=== PATIENT | female | born 1990 | race Caucasian/White ===

== ENCOUNTER 2021-11-23 11:12 | Outpatient (REF) | payer OTHER, SELFPAY ==
[2021-11-29 08:57] LABS: HPV mRNA E6/E7 rflx Not Detected (Not Detected)
== END 2021-11-23 11:13 | disposition home or self-care (01) ==
LOC: HO.LAB 11:12
PROVIDERS: Visit Provider Internal Medicine
DX: Z12.4 Encounter for screening for malignant neoplasm of cervix (principal); Z11.51 Encounter for screening for human papillomavirus (HPV)
CPT/HCPCS: 87624; 88142

== ENCOUNTER 2023-09-21 08:57 | Outpatient (AMB) | payer OTHER, SELFPAY ==
--- NOTE | 2023-09-21 09:08 | MHC.PC.OV ---
Vital Signs 09/21/23 09:23 Height 5 ft 7 in Weight 145 lb BMI 22.7 BP 118/70 Blood Pressure Location Lt brachial Position Sitting Pulse 90 Pulse Source Pulse Oximeter Pulse Oximetry (%) 97 Oxygen Delivery Method Room Air Intake Visit Reasons: PE Intake Note: Pt is here today for PE. Allergies amoxicillin [Augmentin] Allergy (Unknown, Verified 09/21/23 09:31) Rash ciprofloxacin [Cipro] Allergy (Unknown, Verified 09/21/23 09:31) toes and fingers went numb neuropathy clavulanic acid [Augmentin] Allergy (Unknown, Verified 09/21/23 09:31) Rash penicillin V Allergy (Unknown, Verified 09/21/23 09:31) Rash Medication List - Last Reconciled 09/21/23 by Delfina Juarez MD dextroamphetamine-amphetamine 30 mg 1 tab PO DAILY PRN loratadine (Claritin) 10 mg PO DAILY norgestrel-ethinyl estradiol 0.3-30 mg-mcg (Low-Ogestrel (28)) 1 tab PO DAILY Tobacco use date assessed: 09/21/23 Dental Screening Dental Screen Date: 09/21/23 Did you have a dental visit in the last 12 months?: Yes Did you have a dental problem in the last 6 months where you did not have access to dental care?: No Was dental information given to patient?: Patient has dentist HPI PE HPI Details Pt presents for PE. [facility] Medical History (Updated 11/23/21 @ 10:53 by Delfina Juarez MD) ADHD Surgical History Status post colposcopy Hx of breast implants, bilateral Family History Father No problems noted. Mother No problems noted. Social History Household Members Other:: single, no children Housing: House Patient Tobacco Use Status: Never used Tobacco e-Cigarette/Vaping Use: Never Used service: No Current occupational status: employed Cognitive needs: No Hearing needs: No Vision needs: Yes Questionnaire PHQ-9 Over the last 2 weeks, how often have you been bothered by any of the following problems? 1. Little interest or pleasure in doing things: not at all 2. Feeling down, depressed, or hopeless: not at all 3. Trouble falling or staying asleep, or sleeping too much: not at all 4. Feeling tired or having little energy: not at all 5. Poor appetite or overeating: not at all 6. Feeling bad about yourself - or that you are a failure or have let yourself or your family down: not at all 7. Trouble concentrating on things, such as reading the newspaper or watching television: not at all 8. Moving or speaking so slowly that other people could have noticed. Or the opposite - being so fidgety or restless that you have been moving around a lot more than usual: not at all 9. Thoughts that you would be better off or of hurting yourself in some way: not at all Total score: 0 Depression Screening Interpretation: Negative Depression Screening Done: Yes Source: Developed by Drs. Uriel Royal, Zayra Sotomayor, Gordon Mcpherson and colleagues, with an educational layla from [employer] Thrive Questionnaire Date Thrive assessed: 09/21/23 I am a: Patient What is your living situation today?: I have a steady place to live Within the past 12 months, did the food you bought not last and you didn't have the money to get more?: Never true Within the past 12 months, did you worry whether your food would run out before you got money to buy more?: Never true Do you have trouble paying for medicines?: No Do you have trouble getting transportation to medical appointments?: No Do you have trouble paying your heating and electricity bill?: No Do you have trouble taking care of your child, family member or friend?: No Do you have trouble with day-to-day activities such as bathing, preparing meals, shopping, managing finances, etc.?: No Are you currently unemployed and looking for a job?: No Are you interested in more education?: No Please select the resources that you would like help with: None THRIVE Score: 0 AUDIT C Alcohol Use Questionnaire (AUDIT-C) 1. How often do you have a drink containing alcohol?: Monthly or less 2. How many drinks containing alcohol do you have on a typical day when you are drinking?: 1 or 2 3. How often do you have six or more drinks on one occasion?: Never Total Score: 1 JUAREZ-7 AMB Questionnaire JUAREZ-7 Date JUAREZ - 7 assessed: 09/21/23 Feeling nervous, anxious, or on edge: 0 = Not at all Not being able to stop or control worryin = Not at all Worrying too much about different things: 0 = Not at all Trouble relaxin = Not at all Being so restless that it is hard to sit still: 0 = Not at all Becoming easily annoyed or irritable: 0 = Not at all Feeling afraid as if something awful might happen: 0 = Not at all Total JUAREZ-7 score (0-4 normal; 5-9 mild; 10-14 moderate; 15-21 severe): 0 Source: Developed by Drs. Uriel Royal, Zayra Sotomayor, Gordon Mcpherson and colleagues, with an educational layla from [employer]. Review of Systems Const All systems reviewed & are unremarkable except as noted in HPI and below ENT Reports no additional complaints Card Reports no additional complaints Resp Reports no additional complaints GI Reports no additional complaints Reports no additional complaints Physical exam (Primary Care) Vital Signs: Last Vital Signs Pulse 90 09/21/23 09:23 BP 118/70 09/21/23 09:23 Pulse Ox 97 09/21/23 09:23 Oxygen Delivery Method Room Air 09/21/23 09:23 BMI result Body Mass Index 22.7 Tobacco/Smoking Status: Tobacco use Status Tobacco use date assessed 09/21/23 09/21/23 09:33 Patient Tobacco Use Status Never used Tobacco 09/21/23 09:33 e-Cigarette/Vaping Use Never Used 09/21/23 09:09 PHQ-9: PHQ-9 Score PHQ-9: Total score 0 09/21/23 09:50 Depression Screening Interpretation: Negative Thrive Assessment: Date of Thrive Assessment Date Thrive assessed 09/21/23 09/21/23 09:36 Const General: no acute distress HENMT Head: Yes normal to inspection Ears: hearing grossly normal bilaterally Face and sinus: Yes normal facial exam Mouth: Normal oral and palatal mucosa present Throat: Yes posterior oropharynx normal Eyes General: appearance normal, both eyes and all related structures Neck Neck: Yes no lymphadenopathy and Yes supple Resp Effort & Inspection: normal respiratory effort Auscultation: clear to auscultation bilaterally Cardio Rhythm: regular rhythm Heart sounds: S1 normal heart sound present and S2 normal heart sound present GI Inspection: Yes normal to inspection Palpation (GI): Soft to palpation Percussion: Yes normal to percussion Auscultation: normal bowel sounds External Female Exam: normal external appearance Speculum Exam - Vagina: normal appearance of the vagina Speculum Exam - Cervix: normal appearance of the cervix Bimanual exam- vagina & uterus: normal bimanual exam Extrem General: Yes no clubbing, cyanosis or edema Assessment and Plan Assessment & Plan (1) Annual physical exam: Code(s): Z00.00 - Encounter for general adult medical examination without abnormal findings Plan: Well-balanced diet regular physical activity discussed with the patient Pap smear was done today Orders: Orders Pap Smear Today Z00.00 - Encounter for general adult medical examination without abnormal findings Bacterial Vaginosis Panel Today Z00.00 - Encounter for general adult medical examination without abnormal findings Coding Level of Care Code Est Pt Prev Care 18-39y(65722) Diagnoses Annual physical exam Z00.00
[2023-09-21 09:23] VITALS: BP 118/70; PULSE 90; O2SAT 97; BMI 22.7
== END 2023-09-21 10:37 | disposition home or self-care (01) ==
PROVIDERS: PCP Internal Medicine; Visit Provider Internal Medicine
DX: Z00.00 Encounter for general adult medical examination without abnormal findings (principal)
CPT/HCPCS: 99395

== ENCOUNTER 2023-09-21 12:55 | Outpatient (REF) | payer OTHER, SELFPAY ==
[2023-09-29 02:24] LABS: HPV mRNA E6/E7 Not Detected (Not Detected)
== END 2023-09-21 12:56 | disposition home or self-care (01) ==
LOC: HO.LNP 12:55
PROVIDERS: Visit Provider Internal Medicine
DX: Z00.00 Encounter for general adult medical examination without abnormal findings (principal)
CPT/HCPCS: 87624; 88142

== ENCOUNTER 2023-09-21 12:55 | Outpatient (REF) | payer OTHER, SELFPAY ==
[2023-09-22 10:59] LABS: BV Int Neg Control Negative (Negative); BV Int Pos Control Positive (Positive)
== END 2023-09-21 12:56 | disposition home or self-care (01) ==
LOC: HO.LAB 12:55
PROVIDERS: Visit Provider Internal Medicine
DX: Z00.00 Encounter for general adult medical examination without abnormal findings (principal)
CPT/HCPCS: 87480; 87510; 87660

== ENCOUNTER 2024-10-29 10:09 | Outpatient (AMB) | payer OTHER, SELFPAY ==
[2024-10-29 10:26] VITALS: BP 124/84; PULSE 99; RESP 18; TEMP 36.8; O2SAT 98; BMI 21.9
--- NOTE | 2024-10-29 10:26 | MHC.PC.OV ---
Vital Signs 10/29/24 10:26 Height 5 ft 7 in Weight 140 lb BMI 21.9 BP 124/84 Blood Pressure Location Lt brachial Position Sitting Respiration 18 Pulse 99 Pulse Source Pulse Oximeter Temp 98.2 F Temp Source Oral Pulse Oximetry (%) 98 Oxygen Delivery Method Room Air Intake Visit Reasons: Annual PE Intake Note: Pt is here today for PE. Allergies amoxicillin [Augmentin] Allergy (Unknown, Verified 10/29/24 10:30) Rash ciprofloxacin [Cipro] Allergy (Unknown, Verified 10/29/24 10:30) toes and fingers went numb neuropathy clavulanic acid [Augmentin] Allergy (Unknown, Verified 10/29/24 10:30) Rash penicillin V Allergy (Unknown, Verified 10/29/24 10:30) Rash Medication List - Last Reconciled 10/29/24 by Delfina Juarez MD dextroamphetamine-amphetamine 30 mg 1 tab PO DAILY PRN loratadine (Claritin) 10 mg PO DAILY norgestrel-ethinyl estradiol 0.3-30 mg-mcg (Low-Ogestrel (28)) 1 tab PO DAILY Tobacco use date assessed: 10/29/24 Dental Screening Dental Screen Date: 10/29/24 Did you have a dental visit in the last 12 months?: Yes Did you have a dental problem in the last 6 months where you did not have access to dental care?: No Was dental information given to patient?: Patient has dentist HPI Annual PE HPI Details Patient presents for physical. She complains of increased hair loss for the last 6 months. She denies any changes in her lifestyle but has been under stress trying to buy a house [facility] Medical History (Updated 10/29/24 @ 11:15 by Delfina Juarez MD) Normal pelvic exam Annual physical exam ADHD Surgical History Status post colposcopy Hx of breast implants, bilateral Family History Father No problems noted. Mother No problems noted. 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 1. Little interest or pleasure in doing things: not at all 2. Feeling down, depressed, or hopeless: not at all 3. Trouble falling or staying asleep, or sleeping too much: not at all 4. Feeling tired or having little energy: not at all 5. Poor appetite or overeating: not at all 6. Feeling bad about yourself - or that you are a failure or have let yourself or your family down: not at all 7. Trouble concentrating on things, such as reading the newspaper or watching television: not at all 8. Moving or speaking so slowly that other people could have noticed. Or the opposite - being so fidgety or restless that you have been moving around a lot more than usual: not at all 9. Thoughts that you would be better off or of hurting yourself in some way: not at all Total score: 0 Depression Screening Interpretation: Negative Depression Screening Done: Yes 18468 - PHQ-9 Billing: Yes Source: Developed by Drs. Uriel Royal, Zayra Sotomayor, Gordon Mcpherson and colleagues, with an educational layla from [employer]. Thrive Questionnaire Date Thrive assessed: 10/29/24 I am a: Patient What is your living situation today?: I have a steady place to live Within the past 12 months, did the food you bought not last and you didn't have the money to get more?: Never true Within the past 12 months, did you worry whether your food would run out before you got money to buy more?: Never true Do you have trouble paying for medicines?: No Do you have trouble getting transportation to medical appointments?: No Do you have trouble paying your heating and electricity bill?: No Do you have trouble taking care of your child, family member or friend?: No Do you have trouble with day-to-day activities such as bathing, preparing meals, shopping, managing finances, etc.?: No Are you currently unemployed and looking for a job?: No Are you interested in more education?: No Please select the resources that you would like help with: None Currently or been in a relationship where the following occur: No concerns reported THRIVE Score: 0 AUDIT C Alcohol Use Questionnaire (AUDIT-C) 1. How often do you have a drink containing alcohol?: Monthly or less 2. How many drinks containing alcohol do you have on a typical day when you are drinking?: 1 or 2 3. How often do you have six or more drinks on one occasion?: Never Total Score: 1 JUAREZ-7 AMB Questionnaire JUAREZ-7 Date JUAREZ - 7 assessed: 10/29/24 Feeling nervous, anxious, or on edge: 0 = Not at all Not being able to stop or control worryin = Not at all Worrying too much about different things: 0 = Not at all Trouble relaxin = Several days Being so restless that it is hard to sit still: 0 = Not at all Becoming easily annoyed or irritable: 0 = Not at all Feeling afraid as if something awful might happen: 0 = Not at all Total JUAREZ-7 score (0-4 normal; 5-9 mild; 10-14 moderate; 15-21 severe): 1 Source: Developed by Drs. Uriel Royal, Zayra Sotomayor, Gordon Mcpherson and colleagues, with an educational layla from [employer]. JUAREZ-7 Assessment Billing JUAREZ-7 Assessment Tool: JUAREZ-7 Assessment 95114 Review of Systems Const All systems reviewed & are unremarkable except as noted in HPI and below Eyes Reports no additional complaints ENT Reports no additional complaints Card Reports no additional complaints Resp Reports no additional complaints GI Reports no additional complaints Reports no additional complaints Musc Reports no additional complaints Physical exam (Primary Care) Vital Signs: Last Vital Signs Temp 98.2 F 10/29/24 10:26 Pulse 99 10/29/24 10:26 Resp 18 10/29/24 10:26 BP 124/84 10/29/24 10:26 Pulse Ox 98 10/29/24 10:26 Oxygen Delivery Method Room Air 10/29/24 10:26 BMI result Body Mass Index 21.9 Tobacco/Smoking Status: Tobacco use Status Tobacco use date assessed 10/29/24 10/29/24 10:30 Patient Tobacco Use Status Never used Tobacco 10/29/24 10:30 e-Cigarette/Vaping Use Never Used 10/29/24 10:26 PHQ-9: PHQ-9 Score PHQ-9: Total score 0 10/29/24 10:30 Depression Screening Interpretation: Negative Thrive Assessment: Date of Thrive Assessment Date Thrive assessed 10/29/24 10/29/24 10:26 Currently or been in a relationship where the following occur: No concerns reported Const General: no acute distress HENMT Head: Yes normal to inspection Ears: hearing grossly normal bilaterally Face and sinus: Yes normal facial exam Mouth: Normal oral and palatal mucosa present Throat: Yes posterior oropharynx normal Eyes General: appearance normal, both eyes and all related structures Neck Neck: Yes no lymphadenopathy and Yes supple Resp Effort & Inspection: normal respiratory effort Auscultation: clear to auscultation bilaterally Cardio Rhythm: regular rhythm Heart sounds: S1 normal heart sound present and S2 normal heart sound present GI Inspection: Yes normal to inspection Palpation (GI): Soft to palpation Percussion: Yes normal to percussion Auscultation: normal bowel sounds Coding Level of Care Code Est Pt Prev Care 18-39y(37378) Diagnoses Annual physical exam Z00. Additional Codes JUAREZ-7 Assessment Billing - JUAREZ-7 Assessment Tool: JUAREZ-7 Assessment 59058 ([id number]) PHQ-9 - 61697 - PHQ-9 Billing: Yes ([id number]) Assessment & Plan Assessment & Plan (1) Annual physical exam: Code(s): Z00. - Encounter for general adult medical examination without abnormal findings Category: Medical Plan: Well-balanced diet regular physical activity discussed with the patient she will return for fasting blood work. Patient due for repeat Pap next year Orders: Orders UA w Microscopic Today Z00.00 - Encounter for general adult medical examination without abnormal findings Comprehensive [place]. Panel Fast Today Z00.00 - Encounter for general adult medical examination without abnormal findings Complete Blood Count Auto Diff Today Z00.00 - Encounter for general adult medical examination without abnormal findings Lipid Panel Today Z00.00 - Encounter for general adult medical examination without abnormal findings TSH reflex Free T4 Today Z00.00 - Encounter for general adult medical examination without abnormal findings Vitamin D 25-OH Total Today Z00.00 - Encounter for general adult medical examination without abnormal findings Medications: Refilled norgestrel-ethinyl estradiol 0.3-30 mg-mcg (Low-Ogestrel (28)) 1 tab PO DAILY 84 tabs 11RF
--- OUTSIDE RECORDS SUMMARY | 2024-10-29 11:36 | XMS_ITS | Clinical Summary ---
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 Active norgestrel-ethin yl estradiol (LO/OVRAL) 0.3-30 MG-MCG per tablet Take 1 tablet by mouth daily. Active spironolactone (ALDACTONE) 25 MG tablet Take 25 mg by mouth daily. Active zolpidem (AMBIEN) 10 MG tablet TK 1 T PO QHS 2 02/08/2019 Active amphetamine-dext roamphetamine (ADDERALL XR) 30 MG 24 hr capsule TK 2 CS PO QD 0 02/13/2019 Active Active Problems No known active problems Encounters Date Type Department Care Team Description 08/19/2024 10:00 AM EDT Office Visit [facility] [address] [phone] Denton Minor MD [place], [place], APRN Acute bacterial rhinosinusitis (Primary Dx) 08/19/2024 Scanned Document [address] [facility] [place] [phone] Provider, Generic 08/19/2024 Travel 08/19/2024 Scanned Document [address] [place] [phone] Provider, Generic from Last 3 Months Immunizations Immunization Administration Dates Next Due Influenza Inactivated/Split Preservative Free IM 03/11/2019,03/09/2018 Social History Tobacco Use Types Packs/Day Years Used Date Smoking Tobacco: Never Smokeless Tobacco: Never Alcohol Use Standard Drinks/Week Comments Yes 0 (1 standard drink = 0.6 oz pur e alcohol) occasional Comments No Sex and Gender Information Value Date Recorded Sex Assigned at Not on file Legal Sex Female 4:56 PM EDT Gender Identity Not on file Sexual Orientation Not on file Last Filed Vital Signs Vital Sign Reading Time Taken Comments Blood Pressure 119/87 08/19/2024 10:24 AM EDT Pulse 96 08/19/2024 10:24 AM EDT Temperature 36.7 ??C (98 ??F) 08/19/2024 10:24 AM EDT Respiratory Rate 16 08/19/2024 10:24 AM EDT Oxygen Saturation 98% 08/19/2024 10:24 AM EDT Inhaled Oxygen Concentration - - Weight 59 kg (130 lb) 04/01/2020 4:00 PM EST Height 170.2 cm (5' 7 ) 04/01/2020 4:00 PM EST Body Mass Index 20.36 04/01/2020 4:00 PM EST Plan of Treatment Health Maintenance Due Date Last Done Comments Hepatitis C Virus Screening 1989 HIV Screening 2002 DTaP/Tdap/Td Vaccines (1 - Tdap) 2008 Hepatitis B Vaccines (1 of 3 - 19+ 3-dose series) 2008 Pap Smear (Ages 21-65) 2010 Influenza Vaccine 12/13/2024 05/13/2024, , 04/11/2022, Additional history exists COVID-19 Vaccine Completed 05/13/2024, , 02/09/2021 HPV Vaccines Aged Out No longer eligi ble based on patient's age to complete this topic Pneumococcal Vaccine: Pediatric (0-5 Years) and At-Risk Patients (6 to 49 Years) Aged Out No longer eligible based on patient's age to complete this topic Insurance [employer] HMO/POS Care Teams Experimental Mechanic Relationship Specialty Start Date End Date Delfina Juarez MD [address] [place] [id number] PCP - General 01/16/20
== END 2024-10-29 11:20 | disposition home or self-care (01) ==
LOC: HO.HMCC 10:10
PROVIDERS: PCP Internal Medicine; Visit Provider Internal Medicine
DX: Z00.00 Encounter for general adult medical examination without abnormal findings (principal)

== ENCOUNTER → 2024-10-29 10:09 | Outpatient (BNVA) | payer OTHER, SELFPAY | PROVIDERS: PCP Internal Medicine; Visit Provider Internal Medicine | DX: Z00.00 Encounter for general adult medical examination without abnormal findings (principal); L65.9 Nonscarring hair loss, unspecified | CPT/HCPCS: 96127 ==